=== PATIENT | female | born 1985 | race Two or more races ===

== ENCOUNTER 2017-09-25 14:11 | Inpatient (IN) | payer BC ==
[~2017-09-25] VITALS: Ht 167.6 cm; Wt 136.1 kg
[2017-09-25 15:09] VITALS: Ht 167.6 cm; Wt 136.1 kg
[2017-09-25 15:23] VITALS: BP 95/52; PULSE 79; RESP 18
[2017-09-25 19:30] VITALS: BP 116/56; RESP 20
[2017-09-25 20:00] VITALS: BP 116/56; PULSE 86; RESP 18
[2017-09-25] MEDS: LEVOFLOXACIN 500MG/D5W (PMX) 100 ML IVPB SCH (20:00)
[2017-09-25] MEDS ORDERED: ONDANSETRON 4 MG INJ IV PRN ×2 (20:00→23:00)
[2017-09-25] MEDS ORDERED: DEXTROSE 5%-0.45% NACL 1,000 ML IV SCH (20:00)
[2017-09-25] MEDS: morphine 2 MG INJ IV PRN (20:30)
--- NOTE | 2017-09-25 22:52 | QN ---
Documentation Comment [id number] JACKSON HALL MD Sep 25, 2017 22:52
[2017-09-25] MEDS ORDERED: NACL 0.9% 3 ML SYG IV SCH (23:00)
[2017-09-25] MEDS ORDERED: MAGNESIUM HYDROXIDE 30ML CUP PO PRN (23:00)
[2017-09-25] MEDS ORDERED: BISACODYL (EC) 5 MG TAB PO PRN (23:00)
[2017-09-25] MEDS ORDERED: DOCUSATE SODIUM 100 MG CAP PO PRN (23:00)
[2017-09-25] MEDS ORDERED: ACETAMINOPHEN 325 MG TAB PO PRN (23:00)
[2017-09-25] MEDS: HYDROCODONE/APAP (5/325) TAB PO PRN (23:29)
[2017-09-25] MEDS: SOD CHLORIDE 0.9% 1,000 ML IV SCH (23:33)
[2017-09-26] MEDS: morphine 2 MG INJ IV PRN ×4 (00:11→20:15)
[2017-09-26 02:38] VITALS: BP 106/52; RESP 20
[2017-09-26 03:53] LABS: ADD UMIC YES; UR ASCORBIC ACID NEGATIVE (NEGATIVE); UR BACTERIA FEW /HPF (NONE SEEN); UR BILIRUBIN (Dip) NEGATIVE (NEGATIVE); UR BLOOD (Dip) 2+ mg/dL (NEGATIVE); UR CLARITY SLIGHTLY CLOUDY (CLEAR); UR COLOR YELLOW (YELLOW); UR GLUCOSE (Dip) NEGATIVE (NEGATIVE); UR KETONES (Dip) NEGATIVE (NEGATIVE); UR LEUKOCYTE ESTERASE (Dip) TRACE Leu/ul (NEGATIVE); UR MUCUS FEW /HPF (NONE SEEN); UR NITRITE (Dip) NEGATIVE (NEGATIVE); UR RBC 26 /HPF (0-5); UR SPECIFIC GRAVITY (Dip) 1.013 (1.003-1.030); UR SQUAMOUS EPITHELIAL CELL FEW /HPF (FEW); UR TOTAL PROTEIN (Dip) NEGATIVE (NEGATIVE); UR UROBILINOGEN (Dip) NEGATIVE (NEGATIVE)
[2017-09-26] MEDS: ACETAMINOPHEN 325 MG TAB PO PRN ×2 (04:18→15:04)
[2017-09-26 05:39] LABS: ABNORMAL IP MESSAGE 1; BASOPHILS % 0.2 % (0.0-2.0); EOSINOPHILS % 0.1 % (0.0-7.0); HEMATOCRIT 32.3 % (37.0-47.0); HEMOGLOBIN 10.3 g/dl (12.0-16.0); LYMPHOCYTES # 1.5 10^3/ul (0.8-2.9); LYMPHOCYTES % 7.6 % (15.0-51.0); MEAN CORPUSCULAR HEMOGLOBIN 27.8 pg (29.0-33.0); MEAN CORPUSCULAR HGB CONC 31.9 g/dl (32.0-37.0); MEAN CORPUSCULAR VOLUME 87.1 fl (82.0-101.0); MEAN PLATELET VOLUME 9.4 fl (7.4-10.4); MONOCYTE # 2.1 10^3/ul (0.3-0.9); MONOCYTES % 10.8 % (0.0-11.0); NEUTROPHIL # 15.5 10^3/ul (1.6-7.5); NEUTROPHILS % 80.8 % (39.0-77.0); PLATELET COUNT 273 10^3/UL (140-415); RED BLOOD COUNT 3.71 10^6/ul (4.20-5.40); RED CELL DISTRIBUTION WIDTH 14.4 % (11.5-14.5); WHITE BLOOD COUNT 19.2 10^3/ul (4.8-10.8)
--- NOTE | 2017-09-26 05:47 | HP ---
DATE OF ADMISSION: 09/25/2017 HISTORY OF PRESENT ILLNESS: The patient is a 31-year-old female with no significant past medical history who was taken to [facility] with abdominal pain. The patient was noted to have renal colic and was transferred here for further management. The patient had CT of the abdomen and pelvis that shows bibasilar opacities most likely reflecting atelectasis than consolidation , status post cholecystectomy, fat containing umbilical hernia. The patient also has mildly limited by motion very mild right hydronephrosis with perinephric periureteral inflammatory stranding, a tiny 1 mm calculus may be present in the distal right ureter just proximal to the right ureterovesical junction. This is not certain and could be artifactual. Patient is transferred here for further management. PAST MEDICAL HISTORY: Cholecystectomy. No diabetes, hypertension. ALLERGY HISTORY: NEGATIVE. FAMILY HISTORY: Noncontributory. SOCIAL HISTORY: Negative at this point. MEDICATION HISTORY: None at home. REVIEW OF SYSTEMS: HEENT: Unremarkable. RESPIRATORY: Unremarkable. CARDIOVASCULAR: Unremarkable. ABDOMEN: As mentioned above. No nausea or vomiting. At this point, patient has right flank pain. No hematuria, dysuria. EXTREMITIES: Unremarkable. CENTRAL NERVOUS SYSTEM: Unremarkable. PHYSICAL EXAMINATION: GENERAL: The patient is an obese female, awake, alert. VITAL SIGNS: Stable. HEAD: Atraumatic, normocephalic. Pupils equal, reactive to light. NECK: Supple. No JVD. LUNGS: Clear. CARDIOVASCULAR: S1, S2 are normal. ABDOMEN: Soft, obese. Bowel sounds positive. Some tenderness in the right flank area noted. EXTREMITIES: There is no cyanosis, clubbing or edema. CENTRAL NERVOUS SYSTEM: The patient is awake, alert with no focal deficit. LABORATORY DATA: Shows WBC 14.6, hemoglobin 11.3, hematocrit 35.3, platelet count 389. The patient's sodium 130, potassium 4.2. Albumin 3.4, glucose 101, BUN 9, creatinine 0.7. The patient is being admitted for further management. IMPRESSION: Patient has: 1. Possible urinary tract infection. 2. Hydronephrosis. 3. Kidney stones. 4. Obesity. 5. Hyponatremia 6. Anemia. PLAN: Continue IV fluid, antibiotic, pain medications. KUB will be done in the morning, PPI. Orders were done. Dictated By: JACKSON HALL MD BS/NTS Conf#: [id number] [facility]#: [id number] MTDD
[2017-09-26] MEDS ORDERED: PANTOPRAZOLE 40 MG INJ IV SCH (06:00)
[2017-09-26] MEDS: PANTOPRAZOLE 40 MG INJ IV SCH (06:00)
[2017-09-26 06:09] LABS: ALBUMIN/GLOBULIN RATIO 0.81; BILIRUBIN,INDIRECT 0.3 mg/dl (0-1.1); BILIRUBIN,TOTAL 0.3 mg/dl (0.2-1.3); CALCIUM 8.3 mg/dl (8.4-10.2); CREATININE 0.7 mg/dl (0.44-1.00); POTASSIUM 3.9 mmol/L (3.5-5.1); TOTAL PROTEIN 6.7 g/dl (6.1-8.1)
[2017-09-26 06:23] LABS: POSITIVE DIFF @See below
[2017-09-26 07:47] VITALS: BP 119/57; RESP 16
--- NOTE | 2017-09-26 07:52 | RADRPT ---
PROCEDURE: XR Abdomen. CLINICAL INDICATION: Abdomen pain. TECHNIQUE: AP supine abdomen x-ray. COMPARISON: None. FINDINGS: The bowel gas pattern is normal with no evidence of obstruction. Surgical clips are present in the right upper quadrant. There are no abnormal calcifications overlying the urinary tracts. The osseus structures are unremarkable. IMPRESSION: 1. Prior right upper quadrant abdomen surgery. 2. Otherwise unremarkable abdomen radiograph. RPTAT: QQ .Sundeep Pretty MD, MD Date Time Electronically viewed and signed by .Sundeep Pretty MD, MD on 09/26/2017 07:52 .R/
[2017-09-26] MEDS: HYDROCODONE/APAP (5/325) TAB PO PRN ×2 (09:40→22:50)
[2017-09-26] MEDS: ENOXAPARIN 40 MG/0.4 ML SYG SC SCH (09:46)
[2017-09-26] MEDS: SOD CHLORIDE 0.9% 1,000 ML IV SCH (12:34)
[2017-09-26 14:55] VITALS: BP 129/70; RESP 18
[2017-09-26] MEDS: TOPIRAMATE 25 MG TAB PO SCH (18:34)
[2017-09-26 19:51] VITALS: BP 125/73; RESP 18
[2017-09-26] MEDS: LEVOFLOXACIN 500MG/D5W (PMX) 100 ML IVPB SCH (20:10)
[2017-09-26] MEDS ORDERED: VANCOMYCIN 1 GM (PMX) 250 ML IVPB SCH (22:00)
[2017-09-26] MEDS: CEFTRIAXONE 1 GM/50 ML (PMX) 50 ML IVPB SCH (22:00)
--- NOTE | 2017-09-26 22:01 | PN ---
Date/Time of Note Date/Time of Note DATE: 09/26/17 TIME: 21:59 Assessment/Plan VTE Prophylaxis VTE Prophylaxis Intervention: other Lines/Catheters IV Catheter Type (from Nrs): Peripheral IV Urinary Cath still in place: No Assessment/Plan Chief Complaint/Hosp Course IMPRESSION: Patient has: 1. Possible urinary tract infection. 2. Hydronephrosis. 3. Kidney stones. 4. Obesity. 5. Hyponatremia 6. Anemia. [address] marques called Problems: Subjective 24 Hr Interval Summary Subjective hx not possible: other (fever+,headache+) Respiratory: no complaints Cardiovascular: no complaints Genitourinary: flank pain (+rt) Exam/Review of Systems Vital Signs Vitals Vital Signs Date Time Temp Pulse Resp B/P Pulse Ox O2 Delivery O2 Flow Rate FiO2 09/26/17 19:51 98.1 72 18 125/73 100 09/25/17 20:00 Room Air Intake and Output 09/25/17 09/25/17 09/26/17 15:00 23:00 07:00 Intake Total 670 ml Balance 670 ml Exam Respiratory: clear to auscultation Cardiovascular: regular rate and rhythm Gastrointestinal: soft Musculoskeletal: nl extremities to inspection Extremities: normal pulses 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 Results Result Diagram: 09/26/1718 09/26/1718 Results 24 hrs Laboratory Tests Test 09/26/17 05:18 White Blood Count 19.2 H Red Blood Count 3.71 L Hemoglobin 10.3 L Hematocrit 32.3 L Mean Corpuscular Volume 87.1 Mean Corpuscular Hemoglobin 27.8 L Mean Corpuscular Hemoglobin Concent 31.9 L Red Cell Distribution Width 14.4 Platelet Count 273 Mean Platelet Volume 9.4 Neutrophils % 80.8 H Lymphocytes % 7.6 L Monocytes % 10.8 Eosinophils % 0.1 Basophils % 0.2 Nucleated Red Blood Cells % 0.0 Neutrophils # 15.5 H Lymphocytes # 1.5 Monocytes # 2.1 H Eosinophils # 0.0 Basophils # 0.0 Nucleated Red Blood Cells # 0.0 Sodium Level 135 Potassium Level 3.9 Chloride Level 106 Carbon Dioxide Level 24 Anion Gap 9 Blood Urea Nitrogen 6 L Creatinine 0.70 Glucose Level 90 Calcium Level 8.3 L Total Bilirubin 0.3 Direct Bilirubin 0.00 Indirect Bilirubin 0.3 Aspartate Amino Transf (AST/SGOT) 14 L Alanine Aminotransferase (ALT/SGPT) 25 Alkaline Phosphatase 90 Total Protein 6.7 Albumin 3.0 L Globulin 3.70 H Albumin/Globulin Ratio 0.81 Medications Medications Current Medications Morphine Sulfate 2 mg 2 mg Q2H PRN IV PAIN Last administered on 09/26/17 20:15 ; Admin Dose 2 MG; Start 09/25/17 at 20:00 Levofloxacin/ Dextrose 100 ml @ 100 mls/hr Q24H IVPB Last administered on 09/26 20:10; Admin Dose 100 MLS/HR; Start 09/25/17 at 20:00 Sodium Chloride (NS) 1,000 ml @ 75 mls/hr [id number] IV Last administered on 09/26 12:34; Admin Dose 75 MLS/HR; Start 09/25/17 at 22:52 Ondansetron HCl (Zofran Inj) 4 mg Q6H PRN IV NAUSEA AND/OR VOMITING Last administered on 09/26/17 18:37; Admin Dose 4 MG; Start 09/25/17 at 23:00 Acetaminophen (Tylenol Tab) 650 mg Q6H PRN PO PAIN LEVEL 1-3 OR FEVER; Start 09/25/17 at 23:00 Docusate Sodium (Colace) 100 mg Q12H PRN PO CONSTIPATION; Start 09/25/17 at 23: 00 Magnesium Hydroxide (Milk Of Mag) 30 ml DAILY PRN PO CONSTIPATION; Start at 23:00 Bisacodyl (Dulcolax) 5 mg DAILY PRN PO CONSTIPATION; Start 09/25/17 at 23:00 Pantoprazole (Protonix Iv) 40 mg DAILY@06 IV ; Start 09/26/17 at 06:00 Enoxaparin Sodium (Lovenox) 40 mg DAILY SC Last administered on 09/26/17 09:46 ; Admin Dose 40 MG; Start 09/26/17 at 09:00 Acetaminophen/ Hydrocodone Bitart ([place] (5/325)) 1 tab Q6H PRN PO PAIN Last administered on 09/26/17 09:40; Admin Dose 1 TAB; Start 09/25/17 at 23:15 Influenza Virus Vaccine (Fluzone) 0.5 ml ONCE ONCE IM* ; Start 09/27/17 at 09:00 ; Stop 09/27/17 at 09:01 Topiramate 25 mg 25 mg DAILY PO Last administered on 09/26/17t 18:34; Admin Dose 25 MG; Start 09/26/17 at 17:30 Vancomycin HCl (Vancocin) 250 ml @ 125 mls/hr ONCE IVPB ; Start 09/26/17 at 22: 00; Stop 09/26/17 at 23:59; Status JACKSON ANGUIANO MD Sep 26, 2017 22:01
[2017-09-27] MEDS: SOD CHLORIDE 0.9% 1,000 ML IV SCH ×3 (01:32→19:29)
[2017-09-27 02:02] VITALS: BP 114/70; RESP 18
[2017-09-27] MEDS: PANTOPRAZOLE 40 MG INJ IV SCH (05:26)
[2017-09-27] MEDS: morphine 2 MG INJ IV PRN ×3 (05:30→18:20)
[2017-09-27 06:03] LABS: BASOPHILS % 0.3 % (0.0-2.0); EOSINOPHILS # 0.1 10^3/ul (0.0-0.5); EOSINOPHILS % 0.5 % (0.0-7.0); HEMATOCRIT 30.8 % (37.0-47.0); HEMOGLOBIN 9.7 g/dl (12.0-16.0); LYMPHOCYTES % 14.3 % (15.0-51.0); MEAN CORPUSCULAR HEMOGLOBIN 27.8 pg (29.0-33.0); MEAN CORPUSCULAR HGB CONC 31.5 g/dl (32.0-37.0); MEAN CORPUSCULAR VOLUME 88.3 fl (82.0-101.0); MEAN PLATELET VOLUME 9.5 fl (7.4-10.4); MONOCYTE # 1.3 10^3/ul (0.3-0.9); MONOCYTES % 9.1 % (0.0-11.0); NEUTROPHIL # 10.6 10^3/ul (1.6-7.5); NEUTROPHILS % 75.4 % (39.0-77.0); PLATELET COUNT 265 10^3/UL (140-415); RED BLOOD COUNT 3.49 10^6/ul (4.20-5.40); RED CELL DISTRIBUTION WIDTH 14.4 % (11.5-14.5)
[2017-09-27 06:41] LABS: ALBUMIN 2.9 g/dl (3.3-4.9); ALBUMIN/GLOBULIN RATIO 0.87; BILIRUBIN,INDIRECT 0.2 mg/dl (0-1.1); BILIRUBIN,TOTAL 0.2 mg/dl (0.2-1.3); CREATININE 0.57 mg/dl (0.44-1.00); POTASSIUM 3.6 mmol/L (3.5-5.1); TOTAL PROTEIN 6.2 g/dl (6.1-8.1)
[2017-09-27 07:53] VITALS: BP 132/74; RESP 18
--- NOTE | 2017-09-27 08:18 | CONS ---
Date/Time of Note Date/Time of Note DATE: 09/27/17 TIME: 08:07 Assessment/Plan Assessment/Plan Chief Complaint/Hosp Course 31-year-old female with back pain was nausea and fever, CT scan of the abdomen and pelvis showed possible 1 mm stone at the right ureterovesical junction was right perinephric periureteric stranding. Patient complains of the pain was movement twisting and bending. She denies any lower urinary tract symptoms. The 1 mm stone she should pass it if she has not done that yet and her symptoms could be more related to infection and muscular strain rather than from the 1 mm stone. We will do straight cath and send her urine for culture and sensitivity. Continue the ceftriaxone, add Flomax and Flexeril and strain her urine for stones. Problems: Consultation Date/Type/Reason Admit Date/Time Sep 25, 2017 at 14:33 Date of Consultation: Sep 27, 2017 Type of Consultation: Urology Reason for Consultation Right ureteral stone Referring Provider: JACKSON HALL MD Hx of Present Illness 31-year-old female presented to the emergency room [facility] with back pain and nausea. She states she has been having fever. She had a CT scan of the abdomen and pelvis which showed mild right hydronephrosis with perinephric stranding and possible 1 mm stone at the right ureterovesical junction. Patient was transferred to [facility] because of her insurance. Patient describes the pain over the back area and it is worse when she is moving, bending and twisting . No similar pain in the past and no history of kidney stone before. She did however have history of urinary tract infection and kidney infection Constitutional: febrile Eyes: no complaints ENT: no complaints Respiratory: no complaints Cardiovascular: no complaints Gastrointestinal: nausea, No vomiting Genitourinary: flank pain Musculoskeletal: back pain Skin: no complaints Neurologic: no complaints Endocrine: no complaints Lymphatic: no complaints Psychological: no complaints Immunologic: no complaints Past Medical History Medical History: other (Obesity) Past Surgical History Past Surgical Hx: cholecystectomy, other ( 2) Family History Significant Family History: no pertinent family hx Social History Alcohol Use: rarely Smoking Status: Current every day smoker Drug Use: none Other Social History 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 3 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 3 2 and one normal delivery, last menstrual period was last month Exam/Review of Systems Vital Signs Vitals Vital Signs Date Time Temp Pulse Resp B/P Pulse Ox O2 Delivery O2 Flow Rate FiO2 09/27/17 07:53 98.4 72 18 132/74 99 09/25/17 20:00 Room Air Intake and Output 09/26/17 09/26/17 09/27/17 15:00 23:00 07:00 Intake Total 550 ml 1440 ml 1150 ml Output Total 1300 ml Balance 550 ml 1440 ml -150 ml Exam Constitutional: alert, oriented Psych: no complaints Head: normocephalic Eyes: nl conjunctiva ENMT: nl external ears & nose Neck: supple Respiratory: normal air movement Cardiovascular: No edema, No jugular venous distention (JVD) Gastrointestinal: other (Pain left lower quadrant, no pain in the right side.) Genitourinary - Female: CVA tenderness (Pain in the low back, both flanks), other (Pelvic exam: no mass, no discharge) Extremities: No calf tenderness, No tenderness Neurological: nl mental status, nl speech Skin: nl turgor Lymph: nl lymph nodes Results Result Diagram: 09/27/17 0537 09/27/17 0537 Results 24 hrs Laboratory Tests Test 09/27/17 05:37 White Blood Count 14.0 #H Red Blood Count 3.49 L Hemoglobin 9.7 L Hematocrit 30.8 L Mean Corpuscular Volume 88.3 Mean Corpuscular Hemoglobin 27.8 L Mean Corpuscular Hemoglobin Concent 31.5 L Red Cell Distribution Width 14.4 Platelet Count 265 Mean Platelet Volume 9.5 Neutrophils % 75.4 Lymphocytes % 14.3 L Monocytes % 9.1 Eosinophils % 0.5 Basophils % 0.3 Nucleated Red Blood Cells % 0.0 Neutrophils # 10.6 H Lymphocytes # 2.0 Monocytes # 1.3 H Eosinophils # 0.1 Basophils # 0.0 Nucleated Red Blood Cells # 0.0 Sodium Level 139 Potassium Level 3.6 Chloride Level 107 Carbon Dioxide Level 23 Anion Gap 13 Blood Urea Nitrogen 5 L Creatinine 0.57 Glucose Level 97 Calcium Level 8.0 L Total Bilirubin 0.2 Direct Bilirubin 0.00 Indirect Bilirubin 0.2 Aspartate Amino Transf (AST/SGOT) 12 L Alanine Aminotransferase (ALT/SGPT) 19 Alkaline Phosphatase 85 Total Protein 6.2 Albumin 2.9 L Globulin 3.30 H Albumin/Globulin Ratio 0.87 Imaging Free Text/Dictation KUB: 1. Prior right upper quadrant abdomen surgery. 2. Otherwise unremarkable abdomen radiograph. Medications Medications Current Medications Morphine Sulfate 2 mg 2 mg Q2H PRN IV PAIN Last administered on 09/27/17 05:30 ; Admin Dose 2 MG; Start 09/25/17 at 20:00 Sodium Chloride (NS) 1,000 ml @ 75 mls/hr [id number] IV Last administered on 09/27 05:27; Admin Dose 75 MLS/HR; Start 09/25/17 at 22:52 Ondansetron HCl (Zofran Inj) 4 mg Q6H PRN IV NAUSEA AND/OR VOMITING Last administered on 09/26/17 18:37; Admin Dose 4 MG; Start 09/25/17 at 23:00 Acetaminophen (Tylenol Tab) 650 mg Q6H PRN PO PAIN LEVEL 1-3 OR FEVER; Start 09/25/17 at 23:00 Docusate Sodium (Colace) 100 mg Q12H PRN PO CONSTIPATION; Start 09/25/17 at 23: 00 Magnesium Hydroxide (Milk Of Mag) 30 ml DAILY PRN PO CONSTIPATION; Start at 23:00 Bisacodyl (Dulcolax) 5 mg DAILY PRN PO CONSTIPATION; Start 09/25/17 at 23:00 Pantoprazole (Protonix Iv) 40 mg DAILY@06 IV Last administered on 09/27/17 05: 26; Admin Dose 40 MG; Start 09/26/17 at 06:00 Enoxaparin Sodium (Lovenox) 40 mg DAILY SC Last administered on 09/26/17 09:46 ; Admin Dose 40 MG; Start 09/26/17 at 09:00 Acetaminophen/ Hydrocodone Bitart ([place] (5/325)) 1 tab Q6H PRN PO PAIN Last administered on 09/26/17 22:50; Admin Dose 1 TAB; Start 09/25/17 at 23:15 Influenza Virus Vaccine (Fluzone) 0.5 ml ONCE ONCE IM* ; Start 09/27/17 at 09:00 ; Stop 09/27/17 at 09:01 Topiramate 25 mg 25 mg DAILY PO Last administered on 09/26/17 18:34; Admin Dose 25 MG; Start 09/26/17 at 17:30 Ceftriaxone Sodium (Rocephin) 50 ml @ 100 mls/hr Q24H IVPB ; Start 09/26/17 at 22:00 ALEN MARTINEZ MD Sep 27, 2017 08:18
[2017-09-27] MEDS: TOPIRAMATE 25 MG TAB PO SCH (08:21)
[2017-09-27] MEDS: ENOXAPARIN 40 MG/0.4 ML SYG SC SCH (08:44)
[2017-09-27] MEDS ORDERED: INFLUENZA VIRUS VACCINE 0.5 ML (DISPENSING) IM* ONE (09:00)
[2017-09-27] MEDS: CYCLOBENZAPRINE 10 MG TAB PO SCH ×3 (09:58→20:56)
[2017-09-27 14:15] VITALS: BP 122/73; RESP 18
[2017-09-27 17:44] LABS: ADD UMIC YES; UR ASCORBIC ACID NEGATIVE (NEGATIVE); UR BILIRUBIN (Dip) NEGATIVE (NEGATIVE); UR BLOOD (Dip) 3+ mg/dL (NEGATIVE); UR CLARITY CLEAR (CLEAR); UR COLOR YELLOW (YELLOW); UR GLUCOSE (Dip) NEGATIVE (NEGATIVE); UR KETONES (Dip) TRACE mg/dL (NEGATIVE); UR LEUKOCYTE ESTERASE (Dip) NEGATIVE Leu/ul (NEGATIVE); UR NITRITE (Dip) NEGATIVE (NEGATIVE); UR RBC 13 /HPF (0-5); UR TOTAL PROTEIN (Dip) NEGATIVE (NEGATIVE); UR UROBILINOGEN (Dip) 1+ mg/dL (NEGATIVE)
--- NOTE | 2017-09-27 18:33 | PN ---
Date/Time of Note Date/Time of Note DATE: 09/27/17 TIME: 18:32 Assessment/Plan VTE Prophylaxis VTE Prophylaxis Intervention: other Lines/Catheters IV C[facility]ter Type (from [facility]): Peripheral IV Urinary Cath still in place: No Assessment/Plan Chief Complaint/Hosp Course IMPRESSION: Patient has: 1. Possible urinary tract infection. 2. Hydronephrosis. 3. Kidney stones. 4. Obesity. 5. Hyponatremia 6. Anemia. 7 sepsis 8 leucocytosis better plan antibiotic per dr marques Problems: Subjective 24 Hr Interval Summary Subjective hx not possible: other (pain better,dr marques saw pt) Exam/Review of Systems Vital Signs Vitals Vital Signs Date Time Temp Pulse Resp B/P Pulse Ox O2 Delivery O2 Flow Rate FiO2 09/27/17 14:15 98.9 78 18 122/73 98 09/25/17 20:00 Room Air Intake and Output 09/26/17 09/26/17 09/27/17 15:00 23:00 07:00 Intake Total 550 ml 1440 ml 1150 ml Output Total 1300 ml Balance 550 ml 1440 ml -150 ml Exam Neck: supple Respiratory: clear to auscultation Cardiovascular: regular rate and rhythm Gastrointestinal: bowel sounds (+), soft Genitourinary - Female: CVA tenderness (rt +) Extremities: normal pulses Results Result Diagram: 09/27/17 0537 09/27/17 0537 Results 24 hrs Laboratory Tests Test 09/27/17 05:37 09/27/17 16:05 White Blood Count 14.0 #H Red Blood Count 3.49 L Hemoglobin 9.7 L Hematocrit 30.8 L Mean Corpuscular Volume 88.3 Mean Corpuscular Hemoglobin 27.8 L Mean Corpuscular Hemoglobin Concent 31.5 L Red Cell Distribution Width 14.4 Platelet Count 265 Mean Platelet Volume 9.5 Neutrophils % 75.4 Lymphocytes % 14.3 L Monocytes % 9.1 Eosinophils % 0.5 Basophils % 0.3 Nucleated Red Blood Cells % 0.0 Neutrophils # 10.6 H Lymphocytes # 2.0 Monocytes # 1.3 H Eosinophils # 0.1 Basophils # 0.0 Nucleated Red Blood Cells # 0.0 Sodium Level 139 Potassium Level 3.6 Chloride Level 107 Carbon Dioxide Level 23 Anion Gap 13 Blood Urea Nitrogen 5 L Creatinine 0.57 Glucose Level 97 Calcium Level 8.0 L Total Bilirubin 0.2 Direct Bilirubin 0.00 Indirect Bilirubin 0.2 Aspartate Amino Transf (AST/SGOT) 12 L Alanine Aminotransferase (ALT/SGPT) 19 Alkaline Phosphatase 85 Total Protein 6.2 Albumin 2.9 L Globulin 3.30 H Albumin/Globulin Ratio 0.87 Urine Color YELLOW Urine Clarity CLEAR Urine pH 7.0 Urine Specific [place] 1.010 Urine Ketones TRACE A Urine Nitrite NEGATIVE Urine Bilirubin NEGATIVE Urine Urobilinogen 1+ H Urine Leukocyte Esterase NEGATIVE Urine Microscopic RBC 13 H Urine Microscopic WBC 0 Urine Hemoglobin 3+ H Urine Glucose NEGATIVE Urine Total Protein NEGATIVE Medications Medications Current Medications Morphine Sulfate 2 mg 2 mg Q2H PRN IV PAIN Last administered on 09/27/17 18:20 ; Admin Dose 2 MG; Start 09/25/17 at 20:00 Sodium Chloride (NS) 1,000 ml @ 75 mls/hr [id number] IV Last administered on 09/27 05:27; Admin Dose 75 MLS/HR; Start 09/25/17 at 22:52 Ondansetron HCl (Zofran Inj) 4 mg Q6H PRN IV NAUSEA AND/OR VOMITING Last administered on 09/26/17 18:37; Admin Dose 4 MG; Start 09/25/17 at 23:00 Acetaminophen (Tylenol Tab) 650 mg Q6H PRN PO PAIN LEVEL 1-3 OR FEVER; Start 09/25/17 at 23:00 Docusate Sodium (Colace) 100 mg Q12H PRN PO CONSTIPATION; Start 09/25/17 at 23: 00 Magnesium Hydroxide (Milk Of Mag) 30 ml DAILY PRN PO CONSTIPATION; Start at 23:00 Bisacodyl (Dulcolax) 5 mg DAILY PRN PO CONSTIPATION; Start 09/25/17 at 23:00 Pantoprazole (Protonix Iv) 40 mg DAILY@06 IV Last administered on 09/27/17 05: 26; Admin Dose 40 MG; Start 09/26/17 at 06:00 Enoxaparin Sodium (Lovenox) 40 mg DAILY SC Last administered on 09/27/17 08:44 ; Admin Dose 40 MG; Start 09/26/17 at 09:00 Acetaminophen/ Hydrocodone Bitart ([place] (5/325)) 1 tab Q6H PRN PO PAIN Last administered on 09/26/17 22:50; Admin Dose 1 TAB; Start 09/25/17 at 23:15 Topiramate 25 mg 25 mg DAILY PO Last administered on 09/27/17 08:21; Admin Dose 25 MG; Start 09/26/17 at 17:30 Ceftriaxone Sodium (Rocephin) 50 ml @ 100 mls/hr Q24H IVPB ; Start 09/26/17 at 22:00 Tamsulosin HCl (Flomax) 0.4 mg HS PO ; Start 09/27/17 at 21:00 Cyclobenzaprine HCl (Flexeril) 10 mg TID PO Last administered on 09/27/17 18: 18; Admin Dose 10 MG; Start 09/27/17 at 09:00 JACKSON HALL MD Sep 27, 2017 18:33
[2017-09-27 20:17] VITALS: BP 127/78; RESP 18
[2017-09-27] MEDS: TAMSULOSIN (SR) 0.4 MG CAP PO SCH (20:56)
[2017-09-27] MEDS: CEFTRIAXONE 1 GM/50 ML (PMX) 50 ML IVPB SCH (21:01)
[2017-09-28 01:31] VITALS: BP 121/68; RESP 18
[2017-09-28] MEDS: morphine 2 MG INJ IV PRN (04:18)
[2017-09-28] MEDS: PANTOPRAZOLE 40 MG INJ IV SCH (05:45)
[2017-09-28 06:19] LABS: BASOPHILS % 0.3 % (0.0-2.0); EOSINOPHILS # 0.1 10^3/ul (0.0-0.5); EOSINOPHILS % 1.3 % (0.0-7.0); HEMATOCRIT 29.6 % (37.0-47.0); HEMOGLOBIN 9.5 g/dl (12.0-16.0); LYMPHOCYTES % 19.8 % (15.0-51.0); MEAN CORPUSCULAR HEMOGLOBIN 28.4 pg (29.0-33.0); MEAN CORPUSCULAR HGB CONC 32.1 g/dl (32.0-37.0); MEAN CORPUSCULAR VOLUME 88.4 fl (82.0-101.0); MEAN PLATELET VOLUME 9.5 fl (7.4-10.4); MONOCYTE # 0.9 10^3/ul (0.3-0.9); NEUTROPHIL # 6.9 10^3/ul (1.6-7.5); NEUTROPHILS % 69.2 % (39.0-77.0); PLATELET COUNT 320 10^3/UL (140-415); RED BLOOD COUNT 3.35 10^6/ul (4.20-5.40); RED CELL DISTRIBUTION WIDTH 14.3 % (11.5-14.5); WHITE BLOOD COUNT 9.9 10^3/ul (4.8-10.8)
[2017-09-28 07:25] VITALS: BP 111/64; PULSE 63; RESP 14
--- NOTE | 2017-09-28 08:49 | CONS ---
Date/Time of Note Date/Time of Note DATE: 09/28/17 TIME: 08:45 Consult Date/Type/Reason Admit Date/Time Sep 25, 2017 at 14:33 Initial Consult Date 09/27/17 Type of Consultation: Urology Reason for Consultation Right the distal ureteral stone?, back pain and bilateral flank pain Ordering Provider: JACKSON HALL MD Subjective Patient states that she is feeling better now but she did have an injection of morphine at 4 AM Objective Vital Signs Date Time Temp Pulse Resp B/P Pulse Ox O2 Delivery O2 Flow Rate FiO2 09/28/17 07:25 98.1 63 14 111/64 98 Room Air Intake and Output 09/27/17 09/27/17 09/28/17 15:00 23:00 07:00 Intake Total 2210 ml 1050 ml Balance 2210 ml 1050 ml Exam Patient appear to be comfortable in no acute distress, abdomen is soft Results/Medications Result Diagram: 09/28/17 0535 09/27/17 0537 Results 24 hrs Laboratory Tests Test 09/27/17 16:05 09/28/17 05:35 Urine Color YELLOW Urine Clarity CLEAR Urine pH 7.0 Urine Specific [place] 1.010 Urine Ketones TRACE A Urine Nitrite NEGATIVE Urine Bilirubin NEGATIVE Urine Urobilinogen 1+ H Urine Leukocyte Esterase NEGATIVE Urine Microscopic RBC 13 H Urine Microscopic WBC 0 Urine Hemoglobin 3+ H Urine Glucose NEGATIVE Urine Total Protein NEGATIVE White Blood Count 9.9 # Red Blood Count 3.35 L Hemoglobin 9.5 L Hematocrit 29.6 L Mean Corpuscular Volume 88.4 Mean Corpuscular Hemoglobin 28.4 L Mean Corpuscular Hemoglobin Concent 32.1 Red Cell Distribution Width 14.3 Platelet Count 320 # Mean Platelet Volume 9.5 Neutrophils % 69.2 Lymphocytes % 19.8 Monocytes % 9.0 Eosinophils % 1.3 Basophils % 0.3 Nucleated Red Blood Cells % 0.0 Neutrophils # 6.9 Lymphocytes # 2.0 Monocytes # 0.9 Eosinophils # 0.1 Basophils # 0.0 Nucleated Red Blood Cells # 0.0 Medications Current Medications Morphine Sulfate 2 mg 2 mg Q2H PRN IV PAIN Last administered on 09/28/17 04:18 ; Admin Dose 2 MG; Start 09/25/17 at 20:00 Sodium Chloride (NS) 1,000 ml @ 75 mls/hr [id number] IV Last administered on 09/27 19:29; Admin Dose 75 MLS/HR; Start 09/25/17 at 22:52 Ondansetron HCl (Zofran Inj) 4 mg Q6H PRN IV NAUSEA AND/OR VOMITING Last administered on 09/26/17 18:37; Admin Dose 4 MG; Start 09/25/17 at 23:00 Acetaminophen (Tylenol Tab) 650 mg Q6H PRN PO PAIN LEVEL 1-3 OR FEVER; Start 09/25/17 at 23:00 Docusate Sodium (Colace) 100 mg Q12H PRN PO CONSTIPATION; Start 09/25/17 at 23: 00 Magnesium Hydroxide (Milk Of Mag) 30 ml DAILY PRN PO CONSTIPATION; Start at 23:00 Bisacodyl (Dulcolax) 5 mg DAILY PRN PO CONSTIPATION; Start 09/25/17 at 23:00 Pantoprazole (Protonix Iv) 40 mg DAILY@06 IV Last administered on 09/28/17 05: 45; Admin Dose 40 MG; Start 09/26/17 at 06:00 Enoxaparin Sodium (Lovenox) 40 mg DAILY SC Last administered on 09/27/17 08:44 ; Admin Dose 40 MG; Start 09/26/17 at 09:00 Acetaminophen/ Hydrocodone Bitart ([place] (5/325)) 1 tab Q6H PRN PO PAIN Last administered on 09/26/17 22:50; Admin Dose 1 TAB; Start 09/25/17 at 23:15 Topiramate 25 mg 25 mg DAILY PO Last administered on 09/27/17 08:21; Admin Dose 25 MG; Start 09/26/17 at 17:30 Ceftriaxone Sodium (Rocephin) 50 ml @ 100 mls/hr Q24H IVPB Last administered on 09/27/17 21:01; Admin Dose 100 MLS/HR; Start 09/26/17 at 22:00 Tamsulosin HCl (Flomax) 0.4 mg HS PO Last administered on 09/27/17 20:56; Admin Dose 0.4 MG; Start 09/27/17 at 21:00 Cyclobenzaprine HCl (Flexeril) 10 mg TID PO Last administered on 09/27/17 20: 56; Admin Dose 10 MG; Start 09/27/17 at 09:00 Assessment/Plan Chief Complaint/Hosp Course 31-year-old female with back pain was nausea and fever, CT scan of the abdomen and pelvis showed possible 1 mm stone at the right ureterovesical junction was right perinephric periureteric stranding. Patient has been on the antibiotic and the 1 mm stone she should be able to pass it if she has not. She is in bed and not doing any work therefore the pain if it is from muscular should be less. Plan is to continue the antibiotic, give her oral pain medications. Urine culture has been negative but that may be the case because she has been on antibiotic. Problems: ALEN MARTINEZ MD Sep 28, 2017 08:49
[2017-09-28] MEDS: ENOXAPARIN 40 MG/0.4 ML SYG SC SCH (09:37)
[2017-09-28] MEDS: CYCLOBENZAPRINE 10 MG TAB PO SCH ×3 (09:43→20:42)
[2017-09-28] MEDS: TOPIRAMATE 25 MG TAB PO SCH (09:44)
[2017-09-28] MEDS: SOD CHLORIDE 0.9% 1,000 ML IV SCH (10:55)
[2017-09-28 15:40] VITALS: BP 108/62; RESP 20
--- NOTE | 2017-09-28 18:39 | PN ---
Date/Time of Note Date/Time of Note DATE: 09/28/17 TIME: 18:38 Assessment/Plan VTE Prophylaxis VTE Prophylaxis Intervention: other Lines/Catheters IV [facility] (from [facility] Peripheral IV Urinary Cath still in place: No Assessment/Plan Chief Complaint/Hosp Course IMPRESSION: Patient has: 1. Possible urinary tract infection. 2. Hydronephrosis. 3. Kidney stones. 4. Obesity. 5. Hyponatremia 6. Anemia. 7 sepsis 8 leucocytosis better plan antibiotic per dr marques PAIN MEDS Problems: Subjective 24 Hr Interval Summary Subjective hx not possible: other (NO GIANFRANCO,HEADACE+) Exam/Review of Systems Vital Signs Vitals Vital Signs Date Time Temp Pulse Resp B/P Pulse Ox O2 Delivery O2 Flow Rate FiO2 09/28/17 15:40 98.2 70 20 108/62 99 09/28/17 07:25 Room Air Intake and Output 09/27/17 09/27/17 09/28/17 15:00 23:00 07:00 Intake Total 2210 ml 1050 ml Balance 2210 ml 1050 ml Exam Respiratory: clear to auscultation Cardiovascular: regular rate and rhythm Gastrointestinal: bowel sounds, soft Musculoskeletal: nl extremities to inspection Results Result Diagram: 09/28/17 0535 09/27/17 0537 Results 24 hrs Laboratory Tests Test 09/28/17 05:35 White Blood Count 9.9 # Red Blood Count 3.35 L Hemoglobin 9.5 L Hematocrit 29.6 L Mean Corpuscular Volume 88.4 Mean Corpuscular Hemoglobin 28.4 L Mean Corpuscular Hemoglobin Concent 32.1 Red Cell Distribution Width 14.3 Platelet Count 320 # Mean Platelet Volume 9.5 Neutrophils % 69.2 Lymphocytes % 19.8 Monocytes % 9.0 Eosinophils % 1.3 Basophils % 0.3 Nucleated Red Blood Cells % 0.0 Neutrophils # 6.9 Lymphocytes # 2.0 Monocytes # 0.9 Eosinophils # 0.1 Basophils # 0.0 Nucleated Red Blood Cells # 0.0 Medications Medications Current Medications Morphine Sulfate 2 mg 2 mg Q2H PRN IV PAIN Last administered on 09/28/17 04:18 ; Admin Dose 2 MG; Start 09/25/17 at 20:00 Sodium Chloride (NS) 1,000 ml @ 75 mls/hr [id number] IV Last administered on 09/28 10:55; Admin Dose 75 MLS/HR; Start 09/25/17 at 22:52 Ondansetron HCl (Zofran Inj) 4 mg Q6H PRN IV NAUSEA AND/OR VOMITING Last administered on 09/26/17 18:37; Admin Dose 4 MG; Start 09/25/17 at 23:00 Acetaminophen (Tylenol Tab) 650 mg Q6H PRN PO PAIN LEVEL 1-3 OR FEVER; Start 09/25/17 at 23:00 Docusate Sodium (Colace) 100 mg Q12H PRN PO CONSTIPATION; Start 09/25/17 at 23: 00 Magnesium Hydroxide (Milk Of Mag) 30 ml DAILY PRN PO CONSTIPATION; Start at 23:00 Bisacodyl (Dulcolax) 5 mg DAILY PRN PO CONSTIPATION; Start 09/25/17 at 23:00 Enoxaparin Sodium (Lovenox) 40 mg DAILY SC Last administered on 09/28/17 09:37 ; Admin Dose 40 MG; Start 09/26/17 at 09:00 Acetaminophen/ Hydrocodone Bitart ([place] (5/325)) 1 tab Q6H PRN PO PAIN Last administered on 09/26/17 22:50; Admin Dose 1 TAB; Start 09/25/17 at 23:15 Topiramate 25 mg 25 mg DAILY PO Last administered on 09/28/17 09:44; Admin Dose 25 MG; Start 09/26/17 at 17:30 Ceftriaxone Sodium (Rocephin) 50 ml @ 100 mls/hr Q24H IVPB Last administered on 09/27/17 21:01; Admin Dose 100 MLS/HR; Start 09/26/17 at 22:00 Tamsulosin HCl (Flomax) 0.4 mg HS PO Last administered on 09/27/17 20:56; Admin Dose 0.4 MG; Start 09/27/17 at 21:00 Cyclobenzaprine HCl (Flexeril) 10 mg TID PO Last administered on 09/28/17 13: 00; Admin Dose 10 MG; Start 09/27/17 at 09:00 Pantoprazole (Protonix Tab) 40 mg DAILY@06 PO ; Start 09/29/17 at 06:00 JACKSON HALL MD Sep 28, 2017 18:39
[2017-09-28 19:17] VITALS: BP 117/56; RESP 16
[2017-09-28] MEDS: TAMSULOSIN (SR) 0.4 MG CAP PO SCH (20:42)
[2017-09-28] MEDS: HYDROCODONE/APAP (5/325) TAB PO PRN (20:42)
[2017-09-28] MEDS: CEFTRIAXONE 1 GM/50 ML (PMX) 50 ML IVPB SCH (21:56)
[2017-09-29] MEDS: SOD CHLORIDE 0.9% 1,000 ML IV SCH ×2 (01:03→06:52)
[2017-09-29 01:56] VITALS: BP 113/70; RESP 16
[2017-09-29] MEDS: HYDROCODONE/APAP (5/325) TAB PO PRN (04:49)
[2017-09-29] MEDS ORDERED: PANTOPRAZOLE (EC) 40 MG TAB PO SCH (06:00)
[2017-09-29 08:00] VITALS: BP 115/66; PULSE 51; RESP 20
[2017-09-29] MEDS: TOPIRAMATE 25 MG TAB PO SCH (08:26)
[2017-09-29] MEDS: CYCLOBENZAPRINE 10 MG TAB PO SCH ×2 (08:26→12:41)
[2017-09-29] MEDS: ENOXAPARIN 40 MG/0.4 ML SYG SC SCH (09:15)
--- NOTE | 2017-09-29 12:14 | PN ---
Date/Time of Note Date/Time of Note DATE: 09/29/17 TIME: 12:13 Assessment/Plan VTE Prophylaxis VTE Prophylaxis Intervention: ambulation Lines/Catheters IV Catheter Type (from [facility]): Peripheral IV Urinary Cath still in place: No Assessment/Plan Chief Complaint/Hosp Course 1. Possible urinary tract infection. 2. Hydronephrosis. 3. Kidney stones. 4. Morbid Obesity. 5. Hyponatremia resolved 6. Anemia. 7. sepsis , resolved Problems: Assessment/Plan 1.Continue IV fluids 2. continue a/b Subjective 24 Hr Interval Summary Constitutional: improved, no complaints Exam/Review of Systems Vital Signs Vitals Vital Signs Date Time Temp Pulse Resp B/P Pulse Ox O2 Delivery O2 Flow Rate FiO2 09/29/17 08:00 98.4 51 20 115/66 100 Room Air Intake and Output 09/28/17 09/28/17 09/29/17 15:00 23:00 07:00 Intake Total 250 ml 2395 ml 1150 ml Output Total 1800 ml 350 ml Balance 250 ml 595 ml 800 ml Exam Constitutional: alert, oriented Eyes: nl conjunctiva ENMT: nl external ears & nose Respiratory: clear to auscultation Cardiovascular: regular rate and rhythm Results Result Diagram: 09/28/17 0535 09/27/17 0537 Medications Medications Current Medications Morphine Sulfate 2 mg 2 mg Q2H PRN IV PAIN Last administered on 09/28/17 04:18 ; Admin Dose 2 MG; Start 09/25/17 at 20:00 Sodium Chloride (NS) 1,000 ml @ 75 mls/hr [id number] IV Last administered on 01:03; Admin Dose 75 MLS/HR; Start 09/25/17 at 22:52 Ondansetron HCl (Zofran Inj) 4 mg Q6H PRN IV NAUSEA AND/OR VOMITING Last administered on 09/26/17 18:37; Admin Dose 4 MG; Start 09/25/17 at 23:00 Acetaminophen (Tylenol Tab) 650 mg Q6H PRN PO PAIN LEVEL 1-3 OR FEVER; Start 09/25/17 at 23:00 Docusate Sodium (Colace) 100 mg Q12H PRN PO CONSTIPATION; Start 09/25/17 at 23: 00 Magnesium Hydroxide (Milk Of Mag) 30 ml DAILY PRN PO CONSTIPATION; Start at 23:00 Bisacodyl (Dulcolax) 5 mg DAILY PRN PO CONSTIPATION; Start 09/25/17 at 23:00 Enoxaparin Sodium (Lovenox) 40 mg DAILY SC Last administered on 09/29/17 09: 15; Admin Dose 40 MG; Start 09/26/17 at 09:00 Acetaminophen/ Hydrocodone Bitart ([place] (5/325)) 1 tab Q6H PRN PO PAIN Last administered on 09/29/17 04:49; Admin Dose 1 TAB; Start 09/25/17 at 23:15 Topiramate 25 mg 25 mg DAILY PO Last administered on 09/29/17 08:26; Admin Dose 25 MG; Start 09/26/17 at 17:30 Ceftriaxone Sodium (Rocephin) 50 ml @ 100 mls/hr Q24H IVPB Last administered on 09/28/17 21:56; Admin Dose 100 MLS/HR; Start 09/26/17 at 22:00 Tamsulosin HCl (Flomax) 0.4 mg HS PO Last administered on 09/28/17 20:42; Admin Dose 0.4 MG; Start 09/27/17 at 21:00 Cyclobenzaprine HCl (Flexeril) 10 mg TID PO Last administered on 09/29/17 08: 26; Admin Dose 10 MG; Start 09/27/17 at 09:00 Pantoprazole (Protonix Tab) 40 mg DAILY@06 PO Last administered on 09/29/17 06:06; Admin Dose 40 MG; Start 09/29/17 at 06:00 ELOISA GARCIA Sep 29, 2017 12:14
[2017-09-29 14:00] VITALS: BP 115/64; RESP 20
[2017-09-29] MEDS ORDERED: TOPI25TA51 PO (14:14)
[2017-09-29] MEDS ORDERED: TAMS-14 PO (14:14)
--- NOTE | 2017-09-29 14:17 | PDOCDIS ---
Discharge Instructions DIAGNOSIS Discharge Diagnosis Right ureteral tiny stone CONDITION Patient Condition: Stable HOME CARE INSTRUCTIONS: Diet Instructions: Low Fat /CholesterolSpecial Diet: clear liq ACTIVITY: Activity Restrictions: Slowly Increase Activity FOLLOW UP/APPOINTMENTS Follow-up Plan 1 week PCP SCHOOL/WORK RELEASE May return to School/Work with: With Restrictions (slow physical activity) ELOISA GARCIA Sep 29, 2017 14:17
[2017-09-29] MEDS ORDERED: CYCL-319 PO (14:18)
[2017-09-29] MEDS ORDERED: TOPI25CA PO (16:09)
[2017-09-29] MEDS ORDERED: AMOX1TAB9 PO (16:09)
--- NOTE | 2017-09-29 16:10 | PDOCDIS ---
Discharge Instructions DIAGNOSIS Discharge Diagnosis Right ureteral tiny stone CONDITION Patient Condition: Stable HOME CARE INSTRUCTIONS: Diet Instructions: Low Fat /CholesterolSpecial Diet: clear liq ACTIVITY: Activity Restrictions: Slowly Increase Activity FOLLOW UP/APPOINTMENTS Follow-up Plan 1 week PCP SCHOOL/WORK RELEASE May return to School/Work with: With Restrictions (slow physical activity) JACKSON HALL MD Sep 29, 2017 16:10
--- NOTE | 2017-10-01 07:35 | DS ---
Date/Time of Note Date/Time of Note DATE: 10/01/17 TIME: 07:34 Discharge Summary Admission/Discharge Info Admit Date/Time Sep 25, 2017 at 14:33 Discharge Date/Time Sep 29, 2017 at 18:20 Discharge Diagnosis Right ureteral tiny stone Patient Condition: Stable Consults Dr Johnson Hospital Course The patient is a 31-year-old female with no significant past medical history who was taken to [facility] with abdominal pain. The patient was noted to have renal colic and was transferred here for further management. The patient had CT of the abdomen and pelvis that shows bibasilar opacities most likely reflecting atelectasis than consolidation, status post cholecystectomy, fat containing umbilical hernia. The patient also has mildly limited by motion very mild right hydronephrosis with perinephric periureteral inflammatory stranding, a tiny 1 mm calculus may be present in the distal right ureter just proximal to the right ureterovesical junction. She is present with: 1. Possible urinary tract infection. 2. Hydronephrosis. 3. Kidney stones. 4. Morbid Obesity. 5. Hyponatremia resolved 6. Anemia. 7. sepsis , resolved During the hospital course pt received muscle relaxant, a/b, her pain was controlled Home Meds Active Scripts Amoxicillin/Potassium Clav (Amox-Clav 500-125 mg Tablet) 500-125 mg Tab, 1 TAB PO BID for 20 Days, #7 TAB Prov:JACKSON HALL MD 09/29/17 Topiramate* (Topamax*) 25 Mg Cap.sprink, 25 MG PO DAILY for 14 Days, CAP Prov:JACKSON HALL MD 09/29/17 Cyclobenzaprine Hcl* (Cyclobenzaprine Hcl*) 10 Mg Tablet, 10 MG PO TID for 7 Days, TAB Prov:ELOISA GARCIA 09/29/17 Topiramate* (Topamax*) 25 Mg Tablet, 25 MG PO DAILY for 14 Days, TAB Prov:ELOISA GARCIA 09/29/17 Tamsulosin Hcl* (Flomax*) 0.4 Mg Cap.er.24h, 0.4 MG PO HS for 14 Days, CAP Prov:ELOISA GARCIA 09/29/17 Follow-up Plan 1 week PCP Primary Care Provider Sundeep Perry Time spent on discharge: < 30 minutes ELOISA GARCIA Oct 01, 2017 07:35
== END 2017-09-29 18:20 | disposition home or self-care (01) | DRG 872 ==
LOC: MS2 14:33
PROVIDERS: ADMIT Internal Medicine Nephrology; ATTEND Internal Medicine Nephrology
DX: A41.9 Sepsis, unspecified organism (principal); E87.1 Hypo-osmolality and hyponatremia; Z68.42 Body mass index [BMI] 45.0-49.9, adult; N13.6 Pyonephrosis; N39.0 Urinary tract infection, site not specified; E66.9 Obesity, unspecified; D64.9 Anemia, unspecified
CPT/HCPCS: 74000; 80053; 81001; 85025; 87040; 87086; 90686; A4310; C9113; J0696; J1650; J1956; J2270; J2405; J3370; J7030; J7042